=== PATIENT | male | born 1990 | race Caucasian/White ===

== ENCOUNTER 2016-10-17 16:03 | Emergency (ER) | payer SELFPAY | END 2016-10-17 20:12 | disposition home or self-care (01) | LOC: D.ER 16:03 | DX: L25.9 Unspecified contact dermatitis, unspecified cause (principal); M79.672 Pain in left foot; M79.671 Pain in right foot ==

== ENCOUNTER 2017-06-10 17:01 | Emergency (ER) | payer SELFPAY | END 2017-06-10 20:30 | disposition home or self-care (01) | LOC: D.ER 17:01 | DX: S82.61XA Displaced fracture of lateral malleolus of right fibula, initial encounter for closed fracture (principal); X50.1XXA Overexertion from prolonged static or awkward postures, initial encounter; Y93.89 Activity, other specified; Y92.89 Other specified places as the place of occurrence of the external cause ==

== ENCOUNTER 2018-04-08 20:40 | Emergency (ER) | payer SELFPAY ==
[~2018-04-08] VITALS: Ht 170.2 cm; Wt 90.9 kg
[2018-04-08 20:45] VITALS: Ht 170.2 cm; Wt 90.9 kg
[2018-04-08] MEDS ORDERED: HYDROCODON-ACE1 EAC7 PO (21:13)
[2018-04-08 21:23] VITALS: BP 132/74
== END 2018-04-08 21:23 | disposition home or self-care (01) ==
LOC: D.ER 20:40
DX: M25.511 Pain in right shoulder (principal)